=== PATIENT | male | born 1985 | race Caucasian/White ===

== ENCOUNTER 2017-12-31 17:42 | Emergency (ER) | payer SELFPAY ==
[2017-12-31 17:43] VITALS: BP 128/82; PULSE 75; RESP 18; TEMP 36.3; O2SAT 98; BMI 31.2
== END 2017-12-31 18:17 | disposition left against medical advice (07) ==
LOC: ED 20:27
PROVIDERS: Emergency Provider Emergency Medicine
DX: R10.9 Unspecified abdominal pain (principal); Z53.21 Procedure and treatment not carried out due to patient leaving prior to being seen by health care provider

== ENCOUNTER 2019-11-07 17:46 | Emergency (ER) | payer SELFPAY ==
[2019-11-07 17:48] VITALS: BP 148/104; PULSE 102; RESP 16; TEMP 36.6; O2SAT 96
--- NOTE | 2019-11-07 18:04 | ED.DCSUM_ITS ---
History of Present Illness Chief Complaint: Dental Informant: Patient Onset: Days Context: Sudden Onset Timing: Continuous Quality: Dental pain and facial swelling Location: Tooth #9, 10 and 11 Current Severity: Moderate Maximum Severity: Moderate Worsened by: Nothing Relieved by: - - Allergic to NSAIDs Associated Symptoms: Facial Swellling Narrative: Patient is a 34-year-old male who presents with dental pain. He has poor dentition. He does not have a dentist. Does not have dental insurance. He denies fever, chills or night sweats. He denies history medic fever, heart murmur, SBE, IV drug use or being immune suppressed. He denies change in voice. He denies drooling. He denies allergy to antibiotics. Prior similar symptoms: No Recent Illness/Hospitalization: No - Past Medical History (1) No significant past medical history Status: Acute Past Medical History - Allergies and Home Meds Allergies/Adverse Reactions: Allergies naproxen Allergy (Verified 11/07/19 17:48) Swelling Primary Care Physician: Care Physician,No Primary [Primary Care Provider] - Prior records reviewed: Yes Past Medical History: None Surgical History: no surgical history Lives: Alone Smoking Status: Current every day smoker Alcohol: Rare Drugs: None Review of Systems General: Denies: Chills, Fever, Malaise, Subjective, Sweats Eyes: Denies: Visual changes - bilaterally, Blurred Vision - bilaterally ENT: Denies: Bilateral ear pain, Rhinorrhea, Sore throat Cardiovascular: Denies: Chest pain, Palpitations, Heart racing Respiratory: Denies: Dyspnea, Cough, Dyspnea on exertion Gastrointestinal: Denies: Abdominal pain, Nausea, Vomiting, Diarrhea Musculoskeletal: Denies: Myalgias, Arthralgias, Neck pain, Back pain, Swelling, Extremity Pain Skin: Reports: Rash. Denies: Wounds Neurological: Denies: Headache, Weakness, Parasthesia Endocrine: Denies: Polyuria, Polydipsia Hematologic: Denies: Easy bruising, Easy bleeding Allergy: Reports: - - Is swelling left side of the face over the maxillary region.. Denies: Swelling of the mouth, Swelling of the tongue Physical Exam Vital Signs/Narrative: Vital Signs Temp Pulse Resp BP Pulse Ox 11/07/19 17:48 97.9 F 102 H 16 148/104 H 96 Inital Vital Signs reviewed: Yes General: Well nourished, Well developed, Obese Head: Normocephalic, Tenderness ENT: Moist mucous membranes, No nasal trauma, No rhinorrhea, TM's clear. Negative for: Nasal congestion, Sinus tenderness Mouth/Throat: Normal oral mucosa, Normal posterior oropharynx, No sublingual edema, Normal Stensen's duct, Dental abscess, Gingivitis, Tenderness on tooth percussion, Trismus, Widespread dental decay. Negative for: Normal inspection lips/gums, Apthous ulcer Neck: Supple, No lymphadenopathy, Nontender, No JVD. Negative for: Anterior submandibular lymphadenopathy, Posterior submandibular lymphadenopathy, Anterior submental lymphadenopathy, Posterior submental lymphadenopathy, Soft tissue swelling, Submandibular soft tissue swelling, Submental soft tissue swelling, Parotid tenderness Cardiovascular: Regular rate, Regular rhythm, No murmurs, Normal S1, Normal S2 Respiratory: No distress, CTA bilaterally, Chest nontender Skin: Normal color, No rash - There is no evidence of facial cellulitis. Neurological: Alert, Oriented x3, Cranial nerves II-XII grossly intact, Normal Strength, Normal Sensation Diagnostic/Tx/Re-eval She has excessive decay to the gumline multiple upper teeth. There is evidence of a dental abscess. There is no interface cellulitis. Patient states he has to pay for his own medication. Since he is allergic to Naprosyn with swelling he was treated with hydrocodone and penicillin. He was instructed to follow-up at the [facility]. - Medical Decision Making Dental abscess treated with antibiotics and opiate analgesia. ED Disposition - Plan for ED Patient: Disposition: Home or Assisted Living Diagnosis: Periapical abscess with facial involvement, Dental caries extending into pulp, Dental caries extending into dentine Instructions: Dental Abscess Prescriptions: Hydrocodone Bitart/Apap 5-325 [[place] 5MG-325MG] 1 tab PO Q6H PRN PRN 3 Days #10 tab PRN Reason: Pain Prescription Printed Penicillin V Potassium 500 mg PO 4X/DAY #40 tab Prescription Printed Referrals: Care Physician,No Primary [Primary Care Provider] - Ayah Duogn [NON-STAFF] - 5-7 Days
[2019-11-07] MEDS: Penicillin Vk 250 MG Tablet 500 MG PO (18:10)
[2019-11-07] MEDS: HYDROcodone Bitartrate/Apap 5/325 Tablet PO (18:11)
--- NOTE | 2019-11-07 18:14 | ED.RN ---
pt given written and verbal dc instructions. pt instructed not to drive on pain medication. pt verbalized understanding of dc instructions and ambulated without restrictions to the WR.
== END 2019-11-07 18:15 | disposition home or self-care (01) ==
LOC: ED 18:12
PROVIDERS: Emergency Provider Emergency Medicine
DX: K04.7 Periapical abscess without sinus (principal); K02.52 Dental caries on pit and fissure surface penetrating into dentin; K02.53 Dental caries on pit and fissure surface penetrating into pulp; E66.9 Obesity, unspecified; Z68.30 Body mass index [BMI] 30.0-30.9, adult; F17.200 Nicotine dependence, unspecified, uncomplicated
CPT/HCPCS: 99283

== ENCOUNTER → 2019-12-21 10:19 | Outpatient (CLI) | payer MEDICARE, SELFPAY | PROVIDERS: PCP Internal Medicine; Referring Provider Internal Medicine; Visit Provider Internal Medicine | DX: Z20.828 Contact with and (suspected) exposure to other viral communicable diseases (principal) | CPT/HCPCS: 87635; 94799; C9803; U0003 ==

== ENCOUNTER 2020-06-07 18:42 | Emergency (ER) | payer MEDICAID, SELFPAY ==
[2020-06-07 18:44] VITALS: BP 132/94; PULSE 118; RESP 20; TEMP 35.8; O2SAT 98; BMI 33.9
--- NOTE | 2020-06-07 19:11 | ED.DCSUM_ITS ---
- ER Visit Summary Date of Service: 06/07/20 Chief Complaint: Shortness of breath and right side pain History of Present Illness: The patient is a 34 M who presents with shortness of breath and right-sided pain that has been getting worse over the past 3 days. Patient states the pain is sharp. Patient states the pain is been constant. Patient states it is localized over the right lower chest and right flank. Patient states it is worse when he lays on either side. Patient states nothing seems to help it. Patient states he had a COVID-19 test yesterday which was negative. Patient states he had been having fevers up to 103 at home but has not had any fevers over the past 3 days. Patient does admit to a cough but denies any sputum production. Physical Examination: Vital signs are stable except for mild tachycardia of 118. Patient is afebrile. Patient is in no acute distress. Neck is supple. Trachea is midline. There is no JVD. Heart was regular and tachycardic. Lungs are diminished but equal bilaterally. There is good respiratory effort noted. Abdomen is soft. Bowel sounds are normal. There is no tenderness. Cranial nerves II through XII are intact. There are no focal motor or sensory deficits noted. Extremities are intact. There is no calf tenderness or edema. Test Results: CBC and comprehensive metabolic profile were obtained and were within normal limits. Portable 1 view chest x-ray was obtained. On my interpretation, lung adams are clear. There is normal cardiac silhouette. Bony thorax is normal. There is no acute process noted. Radiologist also interpreted the x-ray and agrees. Influenza swab was obtained and was negative. Emergency Department Course and Treatment: Patient was given albuterol inhaler here. Patient was given a dose of Tylenol. Patient was advised of his findings. Patient was instructed to follow-up with his primary care physician in 5 to 7 days. Patient was instructed to continue Tylenol or ibuprofen as needed for pain. Patient understood and was agreeable with the plan. All questions were answered. Disposition: Discharge home Impression: 1. Viral upper respiratory infection 2. Chest pain This note was generated with [employer] software. It may contain incorrect words, spelling, and punctuation that were not noted in review of the chart prior to signing ED Disposition - Plan for ED Patient: Disposition: Home or Assisted Living Diagnosis: Viral upper respiratory infection, Chest pain Instructions: ED URI, Viral, No Abx (Adult), ED Chest Pain, Noncardiac Referrals: Mireya Olvera MD [Primary Care Provider] - 5-7 Days
[2020-06-07 19:22] VITALS: PULSE 103; RESP 18; O2SAT 95
[2020-06-07 19:31] LABS: Absolute Lymphocyte Count 5.06 X10^3/uL (0.83-4.51); Absolute Neutrophil Count 4.8 X10^3/uL (2.0-7.7); Basophil# 0.08 X10^3/uL; Basophil% 0.7 % (0-1); Eosinophil# 0.39 X10^3/uL; Eosinophils% 3.5 % (0-5); Hemoglobin 14.3 g/dL (13.0-16.5); Lymphocyte # 5.06 X10^3/ul (4.0); Lymphocyte % 45.5 % (19-41); Mean Corp Hgb Conc 32.5 g/dL (32-36); Mean Corpuscular Hgb 29.4 pg (27.0-32.0); Mean Corpuscular Volume 90.5 fL (80-94); Mean Platelet Vol. 9.1 fl (6.2-12.0); Monocyte# 0.79 X10^3/uL; Monocyte% 7.1 % (0-10); NRBC Flagged by Analyzer 0 % (0-5); Neutrophil # 4.76 X10^3/uL (2.7-7.7); Neutrophil % 42.8 % (47-70); POSITIVE DIFFERENTIAL YES; POSITIVE MORPHOLOGY YES; Platelet Count 319 K/mm3 (150-450); RBC Distribution Width CV 12.7 % (11.6-14.6); RBC Distribution Width SD 42.6 fl (35.1-43.9); Red Blood Count 4.86 M/mm3 (4.6-6.2); White Blood Count 11.1 K/mm3 (4.4-11.0)
--- NOTE | 2020-06-07 19:40 | RAD_ITS ---
STUDY: X-RAY CHEST REASON FOR EXAM: Male, 34 years old. Right sided flank pain. Intermittent right-sided chest pain. Shortness of breath and fatigue symptoms started 3 days ago. Negative COVID 19 test yesterday. TECHNIQUE: Single AP portable view of the chest. COMPARISON: Large through the 2015. FINDINGS: The lungs are clear and expanded. There is no demonstrated pleural abnormality. Normal size heart. Normal mediastinum and hollis. Normal visualized pulmonary arteries. Normal visualized aortic arch and descending thoracic aorta. Normal visualized thoracic spine. Normal visualized ribs, clavicles, and shoulders. There is no demonstrated abnormality of the visualized soft tissue structures of the upper abdomen. RAD/Chest 1 View (Portable) IMPRESSION: No acute cardiopulmonary disease. There is no major interval change. Electronically Signed: Song Acosta DO at 20:15 EST Tel [phone], Service support ,
[2020-06-07 19:49] LABS: Differential Indicated SCAN CRITERIA MET
[2020-06-07 19:59] LABS: ALB/GLOB Ratio 0.8 RATIO (0.9-2.4); AST(SGOT) 18 U/L (15-37); Alanine Aminotransfer ALT/SGPT 38 U/L (16-61); Albumin, Serum 3.6 g/dL (3.2-5.0); Alkaline Phosphatase 120 U/L (45-117); Anion Gap 3 (5-15); BUN 14 mg/dL (7-18); BUN/Creat Ratio 13.7 RATIO (10-20); Calcium,Total 8.8 mg/dL (8.5-10.1); Chloride 105 mmol/L (98-107); Creatinine, Serum 1.02 mg/dL (0.70-1.30); EST Glomerular Filtration Rate 89 mL/min (>60); Est Glom Filt Rate - Afr Amer 108 mL/min (>60); Estimated Creatinine Clearance 86.25 ml/min; Globulin 4.7 g/dL (2.2-4.2); Glucose 102 mg/dL (74-106); Potassium 3.7 mmol/L (3.5-5.1); Protein, Total 8.3 g/dL (6.4-8.2); Sodium Level 137 mmol/L (136-145)
[2020-06-07 20:16] LABS: Differential Comment SCANNED; Reactive Lymphocyte 2+
[2020-06-07 20:28] VITALS: BP 131/74; PULSE 102; RESP 16; TEMP 37.1; O2SAT 99
[2020-06-07] MEDS: Acetaminophen 500 MG Tablet 1000 MG PO (21:18)
[2020-06-07 21:19] VITALS: BP 136/96; PULSE 106; RESP 18; O2SAT 96
== END 2020-06-07 21:22 | disposition home or self-care (01) ==
PROVIDERS: Emergency Provider Emergency Medicine; PCP Internal Medicine
DX: J06.9 Acute upper respiratory infection, unspecified (principal); R07.9 Chest pain, unspecified; J45.909 Unspecified asthma, uncomplicated; Z72.0 Tobacco use
CPT/HCPCS: 71045; 80053; 85025; 87804; 99285; A4216

== ENCOUNTER 2020-08-23 16:12 | Emergency (ER) | payer MEDICAID, SELFPAY ==
[2020-08-23 16:13] VITALS: BP 123/72; PULSE 69; RESP 18; TEMP 36.2; O2SAT 98; BMI 35.2
--- NOTE | 2020-08-23 16:43 | ED.VIS.GEN ---
History of Present Illness Chief Complaint: Chest Other Informant: Patient Onset: Today Narrative: Patient is a 34-year-old male that denies any significant past medical history presenting with right-sided rib pain. Patient states he was stretching this morning and then coughed and he felt a pain in his ribs on the right side. He states it felt like a muscle bulged out. Later in the day he coughed again and again felt that bulging sensation. Now he has significant pain when he moves his chest, coughs or sneezes. He took Tylenol PM 4 to 5 hours prior to arrival. He fell asleep and then woke up because he rolled and had more pain. He came in because the pain is too severe. He denies any difficulty breathing. He states he has pulled a muscle in his chest before but it did not feel this bad. No other complaints at this time. Patient does vape and smoke cigarettes. Past Medical History - Allergies and Home Meds Allergies/Adverse Reactions: Allergies naproxen Allergy (Verified 06/07/20 18:43) Swelling Primary Care Physician: Mireya Olvera MD [Primary Care Provider] - Past Medical History: None Surgical History: no surgical history Lives: Spouse/ Significant Other Smoking Status: Current every day smoker Review of Systems General: Denies: Chills, Fever, Sweats Eyes: Denies: Visual changes - bilaterally, Diplopia ENT: Denies: Rhinorrhea, Sore throat Cardiovascular: Reports: Chest pain - right sided . Denies: Palpitations Respiratory: Denies: Dyspnea, Cough, Dyspnea on exertion Gastrointestinal: Denies: Abdominal pain, Nausea, Vomiting Musculoskeletal: Denies: Back pain, Extremity Pain Skin: Denies: Rash, Wounds Neurological: Denies: Headache, Weakness, Numbness Physical Exam Vital Signs/Narrative: Vital Signs Temp Pulse Resp BP Pulse Ox 08/23/20 16:13 97.1 F L 69 18 123/72 H 98 Inital Vital Signs reviewed: Yes General: Well nourished, Well developed, Obese, No Acute Distress Head: Normocephalic, Atraumatic Eyes: Perrl, EOMI ENT: Moist mucous membranes, No rhinorrhea Neck: Supple, Nontender Cardiovascular: Regular rate, Regular rhythm, No murmurs Respiratory: No distress, CTA bilaterally, Chest tenderness - Tenderness to palpation right lower ribs between midclavicular line and midaxillary line. No obvious deformity. No overlying rash. Abdomen: Soft, Nontender, Nondistended, Normal bowel sounds Back: Nontender, Normal Inspection Extremities: Nontender, No edema Skin: Normal color, No rash Neurological: Alert, Oriented x3, Cranial nerves II-XII grossly intact, Normal Strength, Normal Sensation Psychological: Normal affect, Normal Mood Diagnostic/Tx/Re-eval Clinical Impression(s) from Imaging Studies Ribs w/Chest X-Ray 08/23/20 16:55 IMPRESSION: RIBS: Normal x-ray examination of the ribs. CHEST: Normal x-ray examination of the chest. Electronically Signed: Jerson Robison MD at 17:48 EDT , Service support , - Medical Decision Making Patient evaluated for right-sided rib pain. It happened when he was moving/stretching. Patient peers nontoxic in no acute distress. He is not having chest wall crepitus. He has equal breath sounds. No rash noted over the area. Rib series obtained does not show any acute process. There is no pneumothorax. X-ray interpreted by myself as well as radiologist. Patient treated with Tylenol, Motrin and Lidoderm in the ER. He is counseled that there is no acute process and likely this is a pulled muscle. He is counseled less likely it could be a hernia between his ribs. He will be treated conservatively at this time with Motrin and Tylenol. Patient verbalizes agreement to stay with his. Patient needs before he can get his discharge instructions. ED Disposition - Plan for ED Patient: Disposition: Home or Assisted Living Diagnosis: Rib pain on right side Instructions: ED Strain Chest Wall Referrals: Mireya Olvera MD [Primary Care Provider] -
[2020-08-23] MEDS: Acetaminophen 500 MG Tablet 1000 MG PO (16:52)
[2020-08-23] MEDS: Lidocaine 5% Patch 1 PATCH TOPICAL (16:52)
[2020-08-23] MEDS: Ibuprofen 600 MG Tablet PO (16:53)
--- NOTE | 2020-08-23 16:55 | RAD_ITS ---
STUDY: X-RAY - UNILATERAL RIBS ( RIGHT ) WITH CHEST REASON FOR EXAM: Male, 34 years old. rib pain TECHNIQUE - RIBS: 4 view(s) of the ribs. TECHNIQUE - CHEST: Single PA view of the chest. COMPARISON: Chest x-ray dated June 07, 2020 FINDINGS - RIBS: Normal visualized ribs without a demonstrated fracture. FINDINGS - CHEST: The lungs are clear and expanded. There is no demonstrated pleural abnormality. Normal size heart. Normal mediastinum and hollis. Normal visualized pulmonary arteries. Normal visualized aortic arch and descending thoracic aorta. Normal visualized thoracic spine. Normal visualized ribs, clavicles, and shoulders. There is no demonstrated abnormality of the visualized soft tissue structures of the upper abdomen. RAD/Ribs Uni Min 3V w/PA Chest IMPRESSION: RIBS: Normal x-ray examination of the ribs. CHEST: Normal x-ray examination of the chest. Electronically Signed: Jerson Robison MD at 17:48 EDT , Service support ,
[2020-08-23 18:09] VITALS: RESP 16
== END 2020-08-23 18:10 | disposition home or self-care (01) ==
LOC: ED 17:11
PROVIDERS: Emergency Provider Emergency Medicine; PCP Internal Medicine
DX: R07.81 Pleurodynia (principal); E66.9 Obesity, unspecified; Z68.35 Body mass index [BMI] 35.0-35.9, adult; F17.210 Nicotine dependence, cigarettes, uncomplicated; F17.290 Nicotine dependence, other tobacco product, uncomplicated
CPT/HCPCS: 71101; 99284

== ENCOUNTER 2022-07-15 17:31 | Emergency (ER) | payer MEDICAID, SELFPAY ==
[2022-07-15 17:32] VITALS: BP 128/99; PULSE 91; RESP 17; TEMP 36.1; O2SAT 100; BMI 36.5
--- NOTE | 2022-07-15 18:09 | EDS_ITS ---
HPI History of Present Illness HPI Narrative: Patient presents with a wound to the volar aspect of his left wrist that occurred yesterday. Patient states he caught it in a hydraulic press. Patient states the pain is some of the skin off of his wrist. Patient states he cleaned the area yesterday. Patient states he kept it covered today. Patient states that his made him come to the emergency department today to get it checked. Patient is unsure of his last tetanus. Patient denies any other injuries. Patient denies any paresthesias or weakness. Chief Complaint: Upper Extremity Injury Informant: patient Occured/Mechanism Comment: Pinched by hydraulic press Onset/Context/Timing Onset: Yesterday Context: Sudden Onset Timing: Continuous Quality of Pain: - (Patient denies any pain) Location: Volar aspect left wrist Worsened by: Nothing Relieved by: Nothing Associated Symptoms Associated Symptoms: Negative for Parasthesia or Weakness Narrative Tetanus Immunization: Unknown PFSH PFSH Medical History no medical history Home Medications albuterol sulfate 90 mcg/actuation aerosol inhaler (Ventolin HFA) 2 puff inhalation Q4H PRN PRN Wheezing ##1 04/16/15 [Rx Last Taken Unknown] clindamycin HCl 300 mg capsule (Cleocin HCl) 300 mg PO Q6H ##40 03/05/17 [Rx Last Taken Unknown] penicillin V potassium 500 mg tablet 500 mg PO 4X/DAY #40 tabs 11/07/19 [Rx Last Taken Unknown] Allergy/AdvReac Type Severity Reaction Status Date / Time naproxen Allergy Swelling Verified 07/15/22 17:34 Family History no significant family his Surgical History (Updated 07/15/22 @ 18:[address] Brennan Murphy, DO) History of thyroglossal duct cyst removal Hx of eye surgery Surgical History no surgical history Social History Smoking Status: Current every day smoker tobacco type: cigarettes ROS ROS ED Constitutional Constitutional ED: Denies chills or fever(s) Eyes Eyes: Denies blurry vision or change in vision ENT ENT ED: Denies rhinorrhea or sore throat Cardiovascular Cardiovascular: Denies chest pain or palpitations Respiratory/Chest Respiratory/Chest: Denies cough or dyspnea Gastrointestinal Gastrointestinal: Denies nausea or vomiting Genitourinary Genitourinary ED: Denies dysuria or hematuria Musculoskeletal Musculoskeletal: Denies back pain or neck pain Integumentary Denies abscess or rash Neurologic Neurologic: Denies headache(s) or weakness Allergic/Immunologic Allergic/Immunologic ED: Denies mouth swelling or urticaria EXAM Physical Exam Const Vital Signs: 07/15/22 17:32 Temperature 97 F L Temperature Source Temporal Pulse Rate 91 Respiratory Rate 17 Blood Pressure 128/99 H Blood Pressure Mean 108 Pulse Ox 100 Oxygen Delivery Method Nasal Cannula Positive well nourished and well developed General Appearance ED: well developed and NAD HEENT Reports moist mucous membranes Extremity Extremity Narrative: There is a wound overlying the volar aspect of the left wrist that extends into the subcutaneous tissue. There is no active bleeding noted. There is some mild surrounding erythema. There is no tenderness. There is no active discharge or drainage. There are no tendon lacerations. There is full range of motion of the left wrist and left forearm. Sensation was intact to light touch in the radial, median, and ulnar areas. Strength is 5/5 in the radial, median, and ulnar areas. Radial pulses are equal bilaterally. Capillary refill is less than 2 seconds in all digits. Neuro oriented x3, CN's II-XII intact bilaterally, moves all extremities, no focal motor deficits and no sensory deficits noted Sensorium / Orientation: alert Motor Exam: strength 5/5 throughout Psych mental status grossly normal MDM MDM MDM Narrative Medical decision making narrative: Patient was advised that this does not appear to be infected. It movement appears to be healing well. Patient was given a tetanus booster. Xeroform ga uze dressing was applied. Patient was instructed to follow-up with his primary care physician or the wound care center in 3 to 5 days for reevaluation. Patient was instructed to keep the wound covered. Patient was instructed to return if worse in any way. Patient understands and is agreeable with plan. All questions were answered. Discharge Plan Triage Chief Complaint: Upper Extremity Injury ED Provider: Brennan Murphy Dx/Rx/DC Orders Clinical Impression: Open wound of left wrist Instructions: ED Skin Avulsion Prescriptions: No Action albuterol sulfate [Ventolin HFA] 1 INHALER inhaler 2 puff inhalation Q4H PRN PRN (Reason: Wheezing) Qty: 1 0RF clindamycin HCl [Cleocin HCl] 300 MG capsule 300 mg PO Q6H Qty: 40 0RF penicillin V potassium 500 MG tablet 500 mg PO 4X/DAY Qty: 40 0RF Primary Care Provider: Mireya Olvera Referrals: Mireya Olvera MD [Primary Care Provider] - 3-5 Days Center,Wound [Non-Staff] - 3-5 Days Disposition Disposition: Home, Self Care
[2022-07-15] MEDS: Diphth,Pertuss(Acell),Tet Vac 0.5 ML Vial IM (18:34)
== END 2022-07-15 18:40 | disposition home or self-care (01) ==
PROVIDERS: Emergency Provider Emergency Medicine; PCP Internal Medicine; Visit Provider Emergency Medicine
DX: S61.502A Unspecified open wound of left wrist, initial encounter (principal); F17.210 Nicotine dependence, cigarettes, uncomplicated; Z23 Encounter for immunization; X58.XXXA Exposure to other specified factors, initial encounter
CPT/HCPCS: 90471; 90715; 99284

== ENCOUNTER 2022-07-25 07:37 | Outpatient (RCR) | payer MEDICAID, SELFPAY ==
[2022-07-25 08:07] VITALS: BP 142/81; PULSE 74; RESP 16; TEMP 36.1; BMI 36.3
--- NOTE | 2022-07-25 13:02 | HP.PCM_ITS ---
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 He was seen in ER on 07/15/22 and was referred here for treatment. He has been treating the wound with antibiotic ointment and gauze. He denies much drainage or erythema. He has not been on any oral antibiotics and no cultures were done. He has been washing the wound with hibiclens daily. He smokes cigarettes daily but otherwise is not on any medications. He denies fever, chills or systemic signs of infection. [facility] Home Medications acetaminophen 500 mg tablet 1,000 mg PO Q6H PRN Pain 07/25/22 [History Last Taken Unknown] ascorbic acid (vitamin C) 1,500 mg tablet 1,500 tab PO DAILY 07/25/22 [History Last Taken Unknown] Allergy/AdvReac Type Severity Reaction Status Date / Time naproxen Allergy Swelling Verified 07/25/22 08:15 Surgical History (Updated 07/15/22 @ 18:[address] Brennan Murphy, DO) History of thyroglossal duct cyst removal Hx of eye surgery Social History Smoking Status: Current every day smoker tobacco type: cigarettes ROS Constitutional Constitutional: Denies chills, fatigue or fever(s) Eyes Eyes: Denies blurry vision, change in vision or loss of vision ENT HEENT: Denies dysphagia, hearing loss or sore throat Cardiovascular Cardiovascular: Denies chest pain, edema or palpitations Respiratory/Chest Respiratory/Chest: Denies dry cough, dyspnea, dyspnea on exertion, productive cough or wheezing Gastrointestinal Gastrointestinal: Denies diarrhea, nausea or vomiting Genitourinary Genitourinary: Denies dysuria or polyuria Musculoskeletal Musculoskeletal: Denies arthralgias, joint stiffness or muscle weakness Integumentary Integumentary: Reports erythema and wounds Neurologic Neurologic: Denies dizziness, memory loss or weakness Psychiatric Psychiatric: Denies homicidal ideation or suicidal ideation Endocrine Endocrinology: Denies polydipsia, polyphagia or polyuria Hematologic/Lymphatic Hematologic/Lymphatic: Denies easy bleeding or easy bruising Allergic/Immunologic Allergic/Immunologic: Denies throat swelling, tongue swelling or urticaria Vital Signs Vital Signs Vital Signs: 07/25/22 08:07 Temperature 97 F L Temperature Source Temporal Pulse Rate 74 Respiratory Rate 16 Blood Pressure 142/81 H Blood Pressure Mean 101 Blood Pressure Source Monitor Blood Pressure Position Sitting Blood Pressure Location Right Arm Oxygen Delivery Method Room Air Weight Weight: 96.162 kg Body Mass Index (BMI) 36.3 Physical Exam Const alert, oriented x3 and no apparent distress General Appearance: cooperative and comfortable HEENT normocephalic and head/scalp atraumatic Resp normal respiratory effort Effort and Inspection: able to speak in complete sentences Cardio regular rate and regular rhythm Skin Wounds: wounds noted Wound Narrative: as in clinical panel Psych mental status grossly normal, thought process normal, cooperative and affect normal Debridement Note Debridement Note Wound debrided: left wrist Laterality: Left Type of Debridement: Excisional debridement Anesthesia Used: 5% Lidocaine Gel and Cetacaine Depth: in the subcutaneous layer Percentage of wound debrided: 100 Instrument Used: #15 blade and Forceps Tissue Removed: Yellow slough, devitalized tissue Severity: Fat Layer Exposed Amount of bleeding with debridement: Mild Bleeding Controlled with: Compression and gauze Patient tolerated procedure: Patient tolerated procedure well Post-Debridement Measurements and Additional Note: Post-Debridement Measurements/Treatment - Nurse 1 - General Ulcer Assessment Start: 07/25/22 08:05 Freq: Status: Active Protocol: LUBA Activity Type Activity Date Activity User E-sign Co-sign Detail Recorded Client Recorded Date Recorded By Document 07/25/22 08:07 [facility] [id number] 07/25/22 08:12 [facility] 07/25/22 08:07 - Today's Visit Information Type of service Initial Visit Arrival Mode Ambulatory Transfer Assistance None Patient Identification Verified (Name & Yes ) Patient Requires Transmission-Based No Precautions Height and Weight Height 5 ft 4 in Weight 96.162 kg Weight in Pounds 212.0 lbs Weight Measurement Method Stated by Patient Body Mass Index (BMI) 36.3 BMI Classification Obese BSA - Ines 2.01 Vital Signs Temperature (97.8 F-99.1 F) 97 F L Temperature Source Temporal Pulse Rate (60-100) 74 Pulse Location Monitor Respiratory Rate (12-18) 16 Respiratory rate source Observation Oxygen Delivery Method Room Air Blood Pressure (90/60-120/80) 142/81 H Blood Pressure Mean 101 Source Monitor Position Sitting Blood Pressure Location Right Arm History Since Last Visit- (Skip if this is Patient's initial visit) Left Footwear Regular Shoe Right Footwear Regular Shoe Pain Scale: 0-10 Numeric Is Patient Pain Free? Yes Communication Assessment Preferred language [employer] Required No Able to Read Yes Able to Write Yes Communication Tools None Right Hearing Abillity Normal Left Hearing Abillity Normal Visual Assistive Devices Glasses Teaching Assessment Preferences Verbal,Written, Audio/Visual, Demonstration Barriers to Learning None Readiness To Learn Excellent Willingness to Engage in Self Management High Activies Readiness to Engage in Self Management High Activities Anxiety Level Calm Cooperation Cooperative Perception Coherent Interest in Health Problem Asks Questions Does Patient Smoke tobacco or other No substances Smoking Status Current every day smoker Is Patient Diabetic No Functional Assessment Recent Decline in Ability to Perform Denies Any Declines 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 Cultural/Jehovah'S Witness Needs that may affect No Treatment Plan Teaching: Wound Center *Welcome to the Wound Center -Person Taught Patient -Teaching Method Discussion -Response to teaching Verbalize understanding Welcome to the Wound Care Center English BLACK - Nurse 1 - General Ulcer Measurement Start: 07/25/22 08:05 Freq: Status: Active Protocol: Activity Type Activity Date Activity User E-sign Co-sign Detail Recorded Client Recorded Date Recorded By Document 07/25/22 08:07 [facility] [id number] 07/25/22 08:12 [facility] 07/25/22 08:07 Wound Center Nurse 1 #1- L WRIST (WORK INJURY) -Combined with other wound No -Current Size (cm) - Length 1.8 -Current Size (cm) - Width 2 -Current Size (cm) - Depth 0.2 -Total Square Cm 3.6 -Date of Last Picture (Recall this 07/25/22 field) -Photo Taken Yes -Epithelialization None Present -Tunneling No -Undermining/Tunneling No -Circular Undermining No -Exudate Amt Medium -Exudate Type Serosanguineous -Wound Margin Distinct, Outline Attached -Granulation Amt Small (1-33%) -Granulation Quality Red -Slough/Fibrin Yes -Necrosis Amt Large (67-100%) -Necrotic Tissue Type Adherent Slough -Texture (Emily-wound Skin Appearance) Assessed, Scarring -Moisture (Emily-wound Skin Appearance) Assessed -Color (Emily-wound Skin Appearance) Assessed, Erythema -Temperature (Emily-wound Skin No Abnormality Appearance) (Pt Warm) -Tenderness on Palpation (Emily-wound No Skin Appearance) -Ulcer Cleansing Rinsed/ Irrigated with Saline -Foul Odor after Cleansing No -Anesthetic Used 5% Lidocaine Gel WAYNE - Nurse 2 - General Ulcer CM Notes Start: 07/25/22 08:05 Freq: Status: Active Protocol: Activity Type Activity Date Activity User E-sign Co-sign Detail Recorded Client Recorded Date Recorded By Document 07/25/22 08:42 MW [id number] 07/25/22 09:02 MW 07/25/22 08:42 Wound Center Nurse 2 -Time 08:44 -Correct Patient Yes -Correct Side, Site, Position Yes -Correct Procedure Yes -Procedure Performed Yes -Type of Procedure Debridement -Clinical Debridement Subcutaneous -Tissue Removed Subcutaneous -Post Debridement (cm) - Length 1.2 -Post Debridement (cm) - Width 1.8 -Post Debridement (cm) - Depth 0.3 -Total Square (Post) (cm) 2.16 -Area of Debridement (cm) - Length 1.2 -Area of Debridement (cm) - Width 1.8 -Total Square (Area) (cm) 2.16 -Tunneling No -Undermining/Tunneling No -Circular Undermining No -Wound/Ulcer Outcome Not Healed -Ulcer Cleansing Rinsed/ Irrigated with Saline -Foul Odor after Cleansing No -Bioengineered Tissue No -Bleeding Controlled with Pressure -Treatment Response Procedure Tolerated Well -Offloading No -Debridement - Subq, 1st 20sq cm Yes Pain Scale: 0-10 Numeric Is Patient Pain Free? Yes WAYNE - Nurse 3 - General Ulcer D/C NN Start: 07/25/22 08:05 Freq: Status: Active Protocol: Activity Type Activity Date Activity User E-sign Co-sign Detail Recorded Client Recorded Date Recorded By Document 07/25/22 08:12 RB Desktop 07/25/22 09:09 RB 07/25/22 08:12 Wound Care Center Nurse 3 #1- L WRIST (WORK INJURY) -Ulcer Cleansing Wound Cleanser -Primary Dressing Applied Aquacel AG 4x4 -Primary Dressing Covered/Secured with Dry Gauze,Dry Gauze & Roll Gauze,Secured with Tape -Aquacel AG 4x4 1 Treatment Response Procedure Tolerated Well Pain Scale: 0-10 Numeric Is Patient Pain Free? Yes WC - Visit Discharge Discharge Condition Stable Ambulatory Status Ambulatory Transportation Private Auto Clinical Summary of Care Provided Yes Assessment/Plan Assessment/Plan (1) Laceration of hand: CODE(S): S61.419A - Laceration without foreign body of unspecified hand, initial encounter (2) Nonhealing nonsurgical wound with fat layer exposed: CODE(S): T14.8XXA - Other injury of unspecified body region, initial encounter (3) Open wound of left hand: CODE(S): S61.402A - Unspecified open wound of left hand, initial encounter PLAN: Plan Debridement performed today in clinic as annotated above. At home wound-care instructions: He will continue to wash the wound daily with soap and water. He will apply Keep dressing clean and dry. Off-loading: The patient was instructed to avoid pressure and friction on the affected areas. Reposition every 2 hours at minimum. Avoid prolonged standing and/or dangling of legs. When seated, feet should be elevated at chest level. Frequent ambulation is encouraged. Diet: Patient encouraged to increase protein intake while taking caution to avoid high carbohydrate and/or sugar intake. Labs/cultures/imaging: Wound culture performed today. Will treat based on results. Follow-up: Return in 1 week for wound care follow up. Return sooner or report to the emergency room should symptoms worsen, or new symptoms arise. Note: [employer] speech recognition agriculture extension specialist software was used to create portions of this document. Sound-alike and misspelled words, as well as other agriculture extension specialist errors may be contained in the documentation.
== END 2022-08-01 23:59 | disposition home or self-care (01) ==
LOC: WC 07:37
PROVIDERS: PCP Internal Medicine; Referring Provider Emergency Medicine; Visit Provider Family Medicine
DX: S61.512A Laceration without foreign body of left wrist, initial encounter (principal); W31.89XA Contact with other specified machinery, initial encounter; Y99.0 Civilian activity done for income or pay; Y92.63 Factory as the place of occurrence of the external cause; F17.210 Nicotine dependence, cigarettes, uncomplicated
CPT/HCPCS: G0463; 11042; 87070; 87075; 87077; 87186; 87205; 99203; 99213

== ENCOUNTER → 2025-02-06 | Outpatient (CLI) | payer SELFPAY ==
--- NOTE | 2025-02-06 12:29 | RAD_ITS ---
PROCEDURE: ANKLE MIN 3 VIEWS 02/06/2025 REASON FOR EXAM: PAIN IN LEFT ANKLE AND JOINTS TECHNIQUE: Procedure Code: RADANK Modality: DX Procedure: ANKLE MIN 3 VIEWS Laterality: Left COMPARISON: None FINDINGS: There is no evidence of fracture or dislocation. There is an old ununited avulsion fracture of the talus posteriorly. There are no significant joint space abnormalities. There is a metallic foreign body in the soft tissues of the distal calf posterolaterally consistent with a BB. RAD/Ankle min 3 Views IMPRESSION: NO ACUTE FRACTURE OR DISLOCATION. OTHER FINDINGS NOTED. Reading Location: [id number]
[2025-02-06 13:53] LABS: Hematocrit 44.8 % (40-54); Hemoglobin 15.1 g/dL (13.0-16.5); Immature Granulocytes Count 0.070 X10^3/uL (0.0-0.0); Mean Corp Hgb Conc 33.7 g/dL (32-36); Mean Corpuscular Volume 88.5 fL (80-94); Mean Platelet Vol. 9.4 fl (6.2-12.0); NRBC Flagged by Analyzer 0 % (0-5); Platelet Count 310 K/mm3 (150-450); RBC Distribution Width CV 13.4 % (11.6-14.6); RBC Distribution Width SD 43.5 fl (35.1-43.9); Red Blood Count 5.06 M/mm3 (4.6-6.2); White Blood Count 11.7 K/mm3 (4.4-11.0)
[2025-02-06 14:38] LABS: AST(SGOT) 32 U/L (<=37); Alanine Aminotransfer ALT/SGPT 41 U/L (<=46); Albumin, Serum 4.3 g/dL (3.5-5.0); Alkaline Phosphatase 94 U/L (40-129); Anion Gap 13 (5-15); BUN 12 mg/dL (4-19); BUN/Creat Ratio 12.2 RATIO (10-20); Calcium,Total 9.3 mg/dL (7.6-11.0); Carbon Dioxide 22.9 mmol/L (21.0-32.0); Chloride 104 mmol/L (98-108); Globulin 3.1 g/dL (2.2-4.2); Glucose 94 mg/dL (70-99); Potassium 4.1 mmol/L (3.3-5.1)
== END | disposition home or self-care (01) ==
PROVIDERS: PCP Internal Medicine; Referring Provider Nurse Practitioner Family; Visit Provider Nurse Practitioner Family
DX: M25.572 Pain in left ankle and joints of left foot (principal)
CPT/HCPCS: 36415; 73610; 80053; 85025